=== PATIENT | male | born 1980 | race Two or more races ===

== ENCOUNTER → 2024-05-05 | Outpatient (CLI) | payer SELFPAY ==
--- NOTE | 2024-05-05 16:35 | XR_ITS ---
Examination: Transabdominal prostate sonography TECHNIQUE: Grayscale sonographic images transabdominal the prostate Exam date and time: May 05, 2024 1645 hours INDICATIONS: Diagnosis hemospermia FINDINGS: Prostate 1.9 x 2.2 x 2.0 cm volume 4.3 cc no prostate nodules No bladder mass or bladder calculi Bladder prevoid volume 229 cc IMPRESSION: Normal prostate
[2024-05-05 17:35] LABS: Collection Type, Urine Clean Catch; Squamous Epithelial Cell,Urine 0 /hpf (0-5)
[2024-05-05 17:49] LABS: Basophils % (Auto) 0 % (0-2.5); Eosinophils % (Auto) 0 % (0-10); Hematocrit 45.4 % (41.0-53.0); Hemoglobin 15.6 g/dL (13.5-16.0); Immature Granulocytes % (Auto) 0 % (0-0); Immature Granulocytes Auto 0.02 Thou/mm3 (0.00-0.00); Lymphocytes # (Auto) 3.2 Thou/mm3 (1.0-4.8); Lymphocytes % (Auto) 29 % (10-50); Mean Corpuscular HGB Conc 34.4 g/dl (31.0-37.0); Mean Corpuscular Hemoglobin 29.5 pg (25.0-35.0); Mean Corpuscular Volume 86 fL (80-100); Monocytes # (Auto) 0.9 Thou/mm3 (0.0-0.8); Monocytes % (Auto) 8 % (0-12); Neutrophils # (Auto) 6.7 Thou/mm3 (1.8-7.7); Neutrophils % (Auto) 62 % (37-80); Nucleated Red Blood Cell % 0 /100 WBC (0); Platelet Count 260 Thou/mm3 (140-440); RDW Standard Deviation 39.8 fL (35.1-43.9); Red Blood Count 5.29 Miln/mm3 (4.50-5.90)
[2024-05-05 17:58] LABS: Prostate Specific Antigen 1.14 ng/mL (0-4.00)
[2024-05-05 18:08] LABS: Bacteria,Urine Rare; Bilirubin,Urine Negative (Negative); Blood,Urine Negative (Negative); Clarity,Urine Clear (Clear/Hazy); Color,Urine Colorless (Lt Yel-Yel); Glucose, Urine Negative (Negative); Ketones,Urine Negative (Negative); Leukocyte Esterase,Urine Negative (Negative); Nitrite,Urine Negative (Negative); Protein,Urine Negative (Neg - Trace); RBC,Urine < 1 /hpf (0-3); Specific Gravity,Urine 1.004 (1.001-1.035); Urobilinogen,Urine Negative mg/dL (0.0-1.0); WBC,Urine < 1 /hpf (0-5)
== END | disposition home or self-care (01) ==
LOC: CDIM 16:40 → COPL 16:57
PROVIDERS: PCP Nurse Practitioner Family; Referring Provider Nurse Practitioner Family; Visit Provider Nurse Practitioner Family
DX: R36.1 Hematospermia (principal)
CPT/HCPCS: 36415; 76873; 81001; 84153; 85025